=== PATIENT | female | born 1975 | race Caucasian/White ===

== ENCOUNTER 2018-12-04 17:29 | Emergency (ER) | payer MEDICAID ==
[~2018-12-04] VITALS: Ht 154.9 cm; Wt 63.5 kg
[2018-12-04 17:32] VITALS: BP_SYST 133
--- NOTE | 2018-12-04 17:37 | NUR ---
Patient to ER bed 07 to gown for evaluation. Side rails up.
--- NOTE | 2018-12-04 17:40 | NUR ---
Pt brought by self , A&Ox4, pt presents to ER with pain on L wrist, L midle finger, L shoulder, R ankle after she fell on November 22, pt with difficulty walking, noopen wounds or other injuries noted
--- NOTE | 2018-12-04 17:45 | NUR ---
Dr Camarena at bedside examining patient
--- NOTE | 2018-12-04 19:02 | NUR ---
Report given to Shannen MARTINEZ
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
[2018-12-04 19:28] VITALS: BP_SYST 128
--- NOTE | 2018-12-04 19:28 | NUR ---
Patient given written and verbal discharge instructions and verbalizes understanding. ER MD discussed with patient the results and treatment provided. Patient in stable condition. ID arm band removed. Rx of Flexeril and Tramadol given. Patient educated on pain management and to follow up with PMD. Pain Scale 2/10 tolerated to patient. Opportunity for questions provided and answered. Medication side effect fact sheet provided.
== END 2018-12-04 19:28 | disposition home or self-care (01) ==
LOC: SED 17:29
DX: S60.031A Contusion of right middle finger without damage to nail, initial encounter (principal); W19.XXXA Unspecified fall, initial encounter; Y93.89 Activity, other specified; Y92.89 Other specified places as the place of occurrence of the external cause; Y99.8 Other external cause status
CPT/HCPCS: 72100-TC; 73030; 81025; 99283

== ENCOUNTER 2018-12-20 18:51 | Emergency (ER) | payer MEDICAID ==
[~2018-12-20] VITALS: Ht 152.4 cm; Wt 64.9 kg
[2018-12-20 19:10] VITALS: BP_SYST 121
--- NOTE | 2018-12-20 19:17 | NUR ---
Patient to ER bed 07 to gown for evaluation. Side rails up.
--- NOTE | 2018-12-20 19:17 | NUR ---
Note [place] in EDM - 12/20/18 at 1932 by [email or web address] Patient to ER bed 0 for evaluation. Side rails up.
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
--- NOTE | 2018-12-20 19:52 | NUR ---
ER at bedside examining patient.
[2018-12-20 21:33] VITALS: BP_SYST 120
--- NOTE | 2018-12-20 21:33 | NUR ---
Patient given written and verbal discharge instructions and verbalizes understanding. ER MD discussed with patient the results and treatment provided. Patient in stable condition. ID arm band removed. Rx of Naprosyn given. Patient educated on pain management and to follow up with PMD. Pain Scale 5/10. Opportunity for questions provided and answered. Medication side effect fact sheet provided.
== END 2018-12-20 21:33 | disposition home or self-care (01) ==
LOC: SED 18:51
DX: S13.4XXA Sprain of ligaments of cervical spine, initial encounter (principal); S60.221A Contusion of right hand, initial encounter; V49.40XA Driver injured in collision with unspecified motor vehicles in traffic accident, initial encounter; Y93.89 Activity, other specified; Y92.89 Other specified places as the place of occurrence of the external cause; Y99.8 Other external cause status
CPT/HCPCS: 72040-TC; 72100-TC; 99283

== ENCOUNTER 2019-02-24 21:48 | Emergency (ER) | payer MEDICAID ==
[~2019-02-24] VITALS: Ht 152.4 cm; Wt 64.9 kg
[2019-02-24 21:55] VITALS: BP_SYST 123
--- NOTE | 2019-02-24 22:21 | NUR ---
Patient to ER bed 2 to gown for evaluation. Side rails up. Report given to Rowan MARTINEZ.
--- NOTE | 2019-02-24 22:28 | NUR ---
Patient brought in complaining of cough, body aches, fever and headaches x 3 days. Pain 4/10. No other complaints/injuries per patient or as noted. Will continue to monitor.
--- NOTE | 2019-02-24 22:36 | NUR ---
ER Dr. Key at bedside examining patient.
[2019-02-24 23:13] VITALS: BP_SYST 123
--- NOTE | 2019-02-24 23:13 | NUR ---
Patient given written and verbal discharge instructions and verbalizes understanding. ER MD discussed with patient the results and treatment provided. Patient in stable condition. ID arm band removed. Rx of Prednisone, azithromycin, promethazine given. Patient educated on pain management and to follow up with PMD. Pain Scale 0/10 Opportunity for questions provided and answered. Medication side effect fact sheet provided.
== END 2019-02-24 23:13 | disposition home or self-care (01) ==
LOC: SED 21:48
DX: J40 Bronchitis, not specified as acute or chronic (principal)
CPT/HCPCS: 71045; 93005; 99283

== ENCOUNTER 2020-07-29 04:59 | Emergency (ER) | payer MEDICAID ==
[~2020-07-29] VITALS: Ht 152.4 cm; Wt 62.6 kg
[2020-07-29 05:11] VITALS: BP_SYST 92
[2020-07-29] MEDS ORDERED: KETOROLAC TROMETHAMINE 60 MG/2 ML VIAL IM ONE (05:30)
[2020-07-29 05:44] LABS: BILIRUBIN,URINE NEGATIVE (NEGATIVE); BLOOD, URINE 1+ (NEGATIVE); CLARITY/URINE CLEAR (CLEAR); COLOR,URINE YELLOW (YELLOW); GLUCOSE,URINE NEGATIVE (NEGATIVE); KETONES,URINE NEGATIVE (NEGATIVE); LEUKOCYTE ESTERASE ,URINE NEGATIVE (NEGATIVE); NITRITE, URINE NEGATIVE (NEGATIVE); PROTEIN URINE NEGATIVE (NEGATIVE); UROBILINOGEN,URINE 0.2 (0.2-1.0)
[2020-07-29 05:46] LABS: BASOPHILS # (AUTO) 0.1 K/uL (0.0-0.2); BASOPHILS % (AUTO) 1.4 % (0.0-2.0); EOSINOPHILS # (AUTO) 0.1 K/uL (0.0-0.4); EOSINOPHILS % (AUTO) 0.9 % (0.0-4.0); HEMATOCRIT 39.1 % (36-48); HEMOGLOBIN 12.7 g/dL (12.0-16.0); LYMPHOCYTES # (AUTO) 2.2 K/uL (1.0-5.5); LYMPHOCYTES % (AUTO) 37.4 % (20.5-51.5); MEAN CORPUSCULAR HEMOGLOBIN 28 pg (27-31); MEAN CORPUSCULAR HGB CONC 32 % (32-36); MEAN CORPUSCULAR VOLUME 87 fL (79.0-98.0); MONOCYTES # (AUTO) 0.5 K/uL (0.0-1.0); MONOCYTES % (AUTO) 8.4 % (1.7-9.3); NEUTROPHILS # (AUTO) 3.1 K/uL (1.8-7.7); NEUTROPHILS % (AUTO) 51.9 % (40.0-70.0); PLATELET COUNT (AUTO) 269 K/uL (130-430); RED BLOOD CELL COUNT(AUTO) 4.52 MIL/uL (4.2-6.2); WHITE BLOOD COUNT (AUTO) 5.9 K/uL (4.8-10.8)
[2020-07-29 05:46] LABS: BACTERIA,URINE FEW /HPF (None Seen)
[2020-07-29 05:54] LABS: CREATININE 0.67 mg/dL (0.55-1.30); POTASSIUM 3.7 mmol/L (3.5-5.1)
[2020-07-29 06:00] LABS: ALBUMIN 3.5 g/dL (3.4-4.8); TOTAL BILIRUBIN 0.7 mg/dL (0.0-1.0)
[2020-07-29] MEDS ORDERED: CEPH500C2 PO (07:29)
[2020-07-29] MEDS ORDERED: IBUP-1969 PO (07:31)
[2020-07-29] MEDS ORDERED: METH-634 PO (07:31)
[2020-07-29 07:43] VITALS: BP_SYST 106
== END 2020-07-29 07:40 | disposition home or self-care (01) ==
LOC: SED 04:59
DX: M54.5 Low back pain (principal)
CPT/HCPCS: 36415; 74176; 76376; 80053; 81000; 85025; 96372; 99284; J1885

== ENCOUNTER → 2021-12-09 | Emergency (ER) | payer MEDICAID ==
[~2021-12-09] VITALS: Ht 152.4 cm; Wt 61.2 kg
[~2021-12-09] MED LIST: ACETAMINOPHEN 500 MG TABLET PO ONE; CEPH-548 PO; IBUP-1969 PO; METH-634 PO
[2021-12-09 15:40] VITALS: BP_SYST 112
== END | disposition home or self-care (01) ==
LOC: SED 15:35
DX: S93.401A Sprain of unspecified ligament of right ankle, initial encounter (principal); Z79.899 Other long term (current) drug therapy; X50.1XXA Overexertion from prolonged static or awkward postures, initial encounter; Y93.01 Activity, walking, marching and hiking; Y92.89 Other specified places as the place of occurrence of the external cause; Y99.8 Other external cause status
CPT/HCPCS: 99283

== ENCOUNTER 2023-07-28 07:14 | Emergency (ER) | payer MEDICAID, OTHER ==
[~2023-07-28] VITALS: Ht 152.4 cm; Wt 69.4 kg
[~2023-07-28 07:14] MED LIST changes: -ACETAMINOPHEN 500 MG TABLET PO ONE; +CYCL10TA24 PO; +IBUP-1971 PO; +LIDO1ADH71 TD
[2023-07-28 07:32] VITALS: BP_SYST 121; PULSE 70; RESP 16; TEMP 96.9; O2SAT 99
[2023-07-28] MEDS: KETOROLAC TROMETHAMINE 60 MG/2 ML VIAL IM ONE (07:56)
[2023-07-28 07:59] LABS: BILIRUBIN,URINE NEGATIVE (NEGATIVE); BLOOD, URINE 1+ (NEGATIVE); CLARITY/URINE SL CLOUDY (CLEAR); COLOR,URINE YELLOW (YELLOW); GLUCOSE,URINE NEGATIVE (NEGATIVE); KETONES,URINE NEGATIVE (NEGATIVE); LEUKOCYTE ESTERASE ,URINE 2+ (NEGATIVE); NITRITE, URINE NEGATIVE (NEGATIVE); PROTEIN URINE NEGATIVE (NEGATIVE); UROBILINOGEN,URINE 0.2 (0.2-1.0)
[2023-07-28 08:04] LABS: BASOPHILS % (AUTO) 0.3 % (0.0-2.0); EOSINOPHILS # (AUTO) 0.1 K/uL (0.0-0.4); EOSINOPHILS % (AUTO) 0.8 % (0.0-4.0); HEMATOCRIT 39.4 % (36-48); HEMOGLOBIN 13.3 g/dL (12.0-16.0); LYMPHOCYTES % (AUTO) 26.7 % (20.5-51.5); MEAN CORPUSCULAR HEMOGLOBIN 29 pg (27-31); MEAN CORPUSCULAR HGB CONC 34 % (32-36); MEAN CORPUSCULAR VOLUME 86 fL (79.0-98.0); MONOCYTES # (AUTO) 0.6 K/uL (0.0-1.0); MONOCYTES % (AUTO) 8.1 % (1.7-9.3); NEUTROPHILS # (AUTO) 4.8 K/uL (1.8-7.7); NEUTROPHILS % (AUTO) 64.1 % (40.0-70.0); PLATELET COUNT (AUTO) 268 K/uL (130-430); RED BLOOD CELL COUNT(AUTO) 4.59 MIL/uL (4.2-6.2); RED CELL DISTRIBUTION WIDTH 15.1 % (9.0-15.0); WHITE BLOOD COUNT (AUTO) 7.5 K/uL (4.8-10.8)
[2023-07-28 08:17] LABS: BACTERIA,URINE FEW /HPF (None Seen)
[2023-07-28 08:21] LABS: SERUM HCG (QUALITATIVE) NEGATIVE (NEGATIVE)
[2023-07-28 08:39] LABS: ALBUMIN 3.3 g/dL (3.4-4.8); BILIRUBIN,DIRECT 0.1 mg/dL (0.0-0.3); CALCIUM 8.2 mg/dL (8.4-11.0); CREATININE 0.72 mg/dL (0.55-1.30); TOTAL BILIRUBIN 0.2 mg/dL (0.0-1.0); TOTAL PROTEIN, SERUM 6.9 g/dL (6.4-8.3)
[2023-07-28] MEDS ORDERED: NITR-85 PO (10:05)
[2023-07-28] MEDS ORDERED: IBUP-1969 PO (10:05)
[2023-07-28] MEDS ORDERED: HYDR-3917 PO (10:05)
[2023-07-28 10:37] VITALS: BP_SYST 125; PULSE 70; RESP 18; TEMP 97; O2SAT 97
== END 2023-07-28 10:38 | disposition home or self-care (01) ==
LOC: SED 07:14
DX: R10.9 Unspecified abdominal pain (principal); R11.0 Nausea
CPT/HCPCS: 99285; 74176; 80076; 80048; 81001; 82150; 84703; 83690; 85025; 87086; 36415; 81025; 96372; 83605; 82397; 81000; 81015; J1885

== ENCOUNTER 2023-11-13 20:21 | Emergency (ER) | payer OTHER ==
[~2023-11-13] VITALS: Ht 154.9 cm; Wt 69.4 kg
[~2023-11-13 20:21] MED LIST changes: +HYDR-3917 PO; +NITR-85 PO
[2023-11-13 20:30] VITALS: BP_SYST 138; PULSE 78; RESP 17; TEMP 96.3; O2SAT 96
[2023-11-13 21:49] LABS: ALBUMIN 3.6 g/dL (3.4-4.8); BASOPHILS % (AUTO) 0.3 % (0.0-2.0); CALCIUM 9.4 mg/dL (8.4-11.0); CREATININE 1.8 mg/dL (0.55-1.30); EOSINOPHILS # (AUTO) 0.1 K/uL (0.0-0.4); HEMATOCRIT 37.9 % (36-48); HEMOGLOBIN 12.8 g/dL (12.0-16.0); LYMPHOCYTES # (AUTO) 4.3 K/uL (1.0-5.5); LYMPHOCYTES % (AUTO) 43.9 % (20.5-51.5); MEAN CORPUSCULAR HEMOGLOBIN 29 pg (27-31); MEAN CORPUSCULAR HGB CONC 34 % (32-36); MEAN CORPUSCULAR VOLUME 86 fL (79.0-98.0); MONOCYTES # (AUTO) 0.7 K/uL (0.0-1.0); MONOCYTES % (AUTO) 6.9 % (1.7-9.3); NEUTROPHILS # (AUTO) 4.7 K/uL (1.8-7.7); NEUTROPHILS % (AUTO) 47.9 % (40.0-70.0); PLATELET COUNT (AUTO) 270 K/uL (130-430); POTASSIUM 3.9 mmol/L (3.5-5.1); RED CELL DISTRIBUTION WIDTH 14.7 % (9.0-15.0); TOTAL BILIRUBIN 0.1 mg/dL (0.0-1.0); TOTAL PROTEIN, SERUM 6.8 g/dL (6.4-8.3); WHITE BLOOD COUNT (AUTO) 9.8 K/uL (4.8-10.8)
[2023-11-13] MEDS: NACL 0.9% 1,000 ML IV ONE (22:29)
[2023-11-13 22:30] LABS: BILIRUBIN,URINE NEGATIVE (NEGATIVE); BLOOD, URINE 2+ (NEGATIVE); CLARITY/URINE SL CLOUDY (CLEAR); COLOR,URINE YELLOW (YELLOW); GLUCOSE,URINE NEGATIVE (NEGATIVE); KETONES,URINE NEGATIVE (NEGATIVE); LEUKOCYTE ESTERASE ,URINE NEGATIVE (NEGATIVE); NITRITE, URINE NEGATIVE (NEGATIVE); PROTEIN URINE 1+ (NEGATIVE); UROBILINOGEN,URINE 0.2 (0.2-1.0)
[2023-11-13] MEDS: fentaNYL CITRATE/PF 100 MCG/2 ML AMP IVP ONE (22:46)
[2023-11-13] MEDS: MAG-AL HYDROX/SIMETH 30 ML UDC PO ONE (23:06)
[2023-11-13] MEDS: ACETAMINOPHEN 500 MG TABLET PO ONE (23:07)
[2023-11-13] MEDS: FAMOTIDINE 20 MG TABLET PO ONE (23:07)
[2023-11-13 23:28] LABS: BACTERIA,URINE FEW /HPF (None Seen); WBC,URINE 0-3 /HPF (0-3)
[2023-11-13 23:29] LABS: MUCUS,URINE None Seen /LPF (None Seen)
[2023-11-14] MEDS ORDERED: ACET-2634 PO
[2023-11-14] MEDS ORDERED: OMEP20CA15 PO (00:01)
[2023-11-14 00:19] VITALS: BP_SYST 112; PULSE 75; RESP 19; TEMP 97.2; O2SAT 100
== END 2023-11-14 00:15 | disposition home or self-care (01) ==
LOC: SED 20:21
DX: K29.70 Gastritis, unspecified, without bleeding (principal); N17.9 Acute kidney failure, unspecified; R10.11 Right upper quadrant pain; R11.0 Nausea; Z79.899 Other long term (current) drug therapy; Z79.2 Long term (current) use of antibiotics
CPT/HCPCS: 99285; 96374; 76705; 96361; 80053; 81001; 83690; 85025; 36415; 81025; J3010; J7030; 81000; 81015